=== PATIENT | male | born 1955 | race Caucasian/White ===

== ENCOUNTER 2024-05-05 14:46 | Emergency (ER) | payer MEDICARE ==
[~2024-05-05] VITALS: Ht 175.3 cm; Wt 81.8 kg
[2024-05-05 14:59] VITALS: BP 157/98; PULSE 125; RESP 18; TEMP 97.8; O2SAT 94
== END 2024-05-05 16:21 | disposition home or self-care (01) ==
LOC: ER 14:47
DX: Z46.89 Encounter for fitting and adjustment of other specified devices (principal)
CPT/HCPCS: 99281